=== PATIENT | female | born 1990 | race Caucasian/White ===

== ENCOUNTER → 2020-04-22 00:32 | Outpatient (CLI) | payer OTHER, SELFPAY ==
[2020-04-22 21:18] LABS: SARS-CoV-2 RNA PCR Negative
== END ==
PROVIDERS: Visit Provider Surgery Plastic and Reconstructive Surgery
DX: Z01.812 Encounter for preprocedural laboratory examination (principal); Z20.822 Contact with and (suspected) exposure to COVID-19
CPT/HCPCS: C9803; U0003; U0005

== ENCOUNTER 2020-04-22 10:31 | Outpatient (CLI) | payer OTHER, SELFPAY ==
[2020-04-22 11:18] LABS: Hematocrit 42.6 % (37.0-47.0); Hemoglobin 14.3 g/dL (12.0-15.0)
== END 2020-04-22 10:32 | disposition home or self-care (01) ==
LOC: ANHSURGERY 10:37
PROVIDERS: Anesthesiology; Visit Provider Surgery Plastic and Reconstructive Surgery
DX: Z01.812 Encounter for preprocedural laboratory examination (principal); L57.4 Cutis laxa senilis
CPT/HCPCS: 36415; 85014; 85018; 86850; 86900; 86901

== ENCOUNTER 2020-04-25 00:42 | Day surgery (SDC) | payer OTHER, SELFPAY ==
[2020-04-21 10:49] VITALS: BMI 28.3
[2020-04-25] VITALS (10 sets, daily range): BP systolic 106–116; BP diastolic 56–77; PULSE 68–96; RESP 13–18; TEMP 36.3–37.2; O2SAT 97–100
--- NOTE | 2020-04-25 06:10 | ECG_ITS ---
Measurements Intervals [place] Rate: 68 P: 30 [place]: 153 QRS: 86 QRSD: 93 T: 51 QT: 385 QTc: 412 Interpretive Statements SINUS RHYTHM NORMAL ECG Electronically Signed On 04-25-2020 11:57:48 IT SUPPORT TECHNICIAN by Mika Garcia D.O.
[2020-04-25] MEDS: LACTATED RINGERS 1,000 ML 30 ML IV CONT ×2 (06:30→13:52)
--- NOTE | 2020-04-25 06:46 | P.PNAN_ITS ---
Anes - Initial Pre Proc Eval Procedure: Operation Date: 04/25/20 07:30 Proposed Procedures p Bilateral Breast Augmentation - Anthony Nichols MD s Bilateral Breast MastopexyWith Gala Flex - Anthony Nichols MD s Abdominoplasty - Anthony Nichols MD s Labiaplasty - Anthony Nichols MD Date/Time: 04/25/20 06:46 Surgeon: Anthony Nichols MD Pre Op Diagnosis: Micromastia, Skin laxity Patient Data Age: 29 Gender: F Height: 1.63 m Weight: 75 kg Allergies Allergy/AdvReac Type Severity Reaction Status Date / Time Bleach (Sodium Hypochlorite) Allergy Severe Rash Verified 04/21/20 10:47 Home Medications Medication Instructions Recorded Confirmed Type brexpiprazole 1 mg tablet 1 mg PO DAILY 03/19/20 04/21/20 History buspirone 10 mg tablet 10 mg PO BID 03/19/20 04/21/20 History vortioxetine 10 mg tablet 10 mg PO DAILY 03/19/20 04/21/20 History docusate sodium 100 mg capsule 100 mg PO DAILY #14 cap 04/14/20 04/21/20 Rx ondansetron HCl 4 mg tablet 4 mg PO Q8H #24 tablet 04/14/20 04/21/20 Rx Laboratory Tests 04/25/20 06:24 Cotinine Pending Patient hx anesthesia problems: none Family hx anesthesia problems: none PMFSH Past Medical History Medical History (Updated 04/25/20 @ 06:46 by Alonzo Rivera DO) Anxiety Bipolar disorder Surgical History Surgical History [place] teeth removed Social History Social History Smoking packs per day: 0.2 Smoking cigarettes per day: 4.0 Years smoked: 1 Smoking pack-years: 0.20 Smoking status: Former smoker Tobacco type: cigarettes Alcohol intake: current Substance use: never Living arrangements: with family Gender identity (if verbalized by the patient): Female Spiritual care concerns: No Anes - Eval Final PreProcedure Day of Procedure 04/25/20 06:46 Patient weight: overweight Heart: regular rate and rhythm Lungs: clear to auscultation and normal air movement Airway: Mallampati scale class 1 Neurological: alert and oriented Last oral intake: >/= 8 hours ASA classification: II Emergent: no Anesthetic plan: proceed Anesthesia type and monitoring: general ETT and standard monitoring Informed Consent: The patient's anesthetic plan and its attendant risks and benefits were discussed with the patient/family/POA. Questions were solicited and answers provided to the satisfaction of the patient/family/POA.
--- NOTE | 2020-04-25 06:55 | WPDHPUPDATE1 ---
History and Physical Update Update Date/Time: 04/25/20 06:55 History and Physical has been reviewed, including an updated exam of the patient. There are NO changes in the patient's condition. Risks, benefits, and alternatives have been discussed and questions answered. Patient agrees to proceed with procedure.
[2020-04-25 06:56] LABS: Urine Cotinine NEGATIVE
[2020-04-25] MEDS: SCOPOLAMINE 1.5 MG PATCH TRANSDERM (06:57)
--- NOTE | 2020-04-25 07:22 | PM.PROC ---
Procedure Note - Detailed Date of procedure: 04/25/20 Pre-op diagnosis: Micromastia, Skin laxity Post-op diagnosis: same Procedure performed: 1. Bilateral augmentation mastopexy with gallaflex 2. Progressive tension abdominoplasty 3. Labiaplasty Description of procedure: She is here today for abdominoplasty. Previously and again today the risks, benefits, alternatives were discussed in extensive detail. I wanted her to be very realistic about the risks involved as well as expectations. We discussed aftercare and what to monitor for. I was very upfront about the risks of wound breakdown leading to loss of skin, open wounds, and need for additional procedures with permanent abdominal deformity. We discussed DVT/PE risks and management. Made sure answered all of her questions to her satisfaction today and consent was obtained. Marked in the preoperative holding area with their verification. The patient was taken to the operating room placed supine on the operating table. Anesthesia was provided by anesthesiology. A fernandez catheter was started. A surgical time-out was taken. First I proceeded with labiaplasty. Patient was prepped and draped in a standard sterile fashion. 1% lidocaine with epinephrine was used anesthetize locally. I sharply excised a wedge excision this was closed with 3-0 Monocryl followed by 4-0 chromic. I then re-prepped and draped the patient in a standard sterile fashion. 1% lidocaine and 0.25% Marcaine with epinephrine was used anesthetize as a field block for the breast. Tegaderm nipple Arcos were placed. A 15 blade used to make an incision just superior to the inframammary fold. Dissection was continued at 45 degree angle until the chest wall as identified. I incised the pectoralis major along its inferior border and completely released the inferior border leaving the medial border intact. I created a subpectoral pocket in the appropriate dimensions based on our preoperative planning for the implant. I then copiously irrigated with saline solution and verified a strict hemostasis. Next the use a triple antibiotic and Betadine containing solution to irrigate the pocket. I washed my gloves with the triple antibiotic and Betadine solution. We washed the implant immediately upon opening it with this solution and only opened it when we needed it. I used implant funnel and no-touch technique. The implant was introduced into the pocket using the funnel. Having verified positioning of the implant this was closed using 2-0 Vicryl. I tailor tacked the breast and to placed a verified my markings. Placed her in a sitting position and marked out the nipple-areolar complex at 38 mm. This was based on preoperative markings intraoperative measurements as well as observations which were in full agreement. I then replaced her supine. I de-epithelialized the superior medial pedicle. Resected the central tissue. She did have asymmetry which had been identified to her preoperatively. I did create a inferior de-epithelialized flap in order to provide coverage of the lower pole of the breast as well as the galaflex. Elevated medial and lateral flaps just superficial to the implant. I did provide a layer of tissue coverage of the implant. I had soaked to the galaflex in Betadine triple antibiotic solution. This was trimmed as necessary and sutured into place with 2-0 Vicryl. I then placed the lower de-epithelialized flap superficial this in order to cover this near the T junction which was tacked into place with 2-0 Vicryl. Final closure was 3-0 Monocryl (3-0 stratafix along the IMF) and a running subcuticular 4-0 Monocryl followed by tissue glue. I then proceeded to the abdominoplasty. I placed the patient in a flexed position to verify the upper and lower markings would reach. I then placed her supine. A thorough abdominal examination was completed. Stab incisions were made and used tumescent solution. A 10 blade was used to ma
[2020-04-25] MEDS: ceFAZolin 2 GM/D5W 50 ML 2 GM/50 ML BAG IVPB (07:37)
[2020-04-25] MEDS: BACITRACIN OINTMENT 15 GM TUBE 1 APPLIC TOPICAL (08:30)
[2020-04-25] MEDS: LIDO 1%/EPINEPHRINE 1:100,000 50 ML VIAL 35 ML INFILTRATE (09:55)
[2020-04-25] MEDS: ceFAZolin SODIUM 1 GM VIAL IV PUSH (11:35)
--- NOTE | 2020-04-25 13:31 | SUR.OPER ---
EBL:100cc
--- NOTE | 2020-04-25 13:42 | SUR.OPER ---
URINE COLLECTION:800cc
[2020-04-25] MEDS: fentaNYL CITRATE INJ (*CRX) 100 MCG/2 ML VIAL 25 MCG IV PUSH ×7 (14:14→14:50)
--- NOTE | 2020-04-25 14:35 | SUR.PHASEI ---
1352. PT IN BED IN FLEXED POSITION. HOB 30 DEGREES. KNEES IN FLEXED POSITION WITH PILLOW UNDERNEATH.
--- NOTE | 2020-04-25 14:35 | SUR.PHASEI ---
PT AWAKE AND ALERT. TALKATIVE.
--- NOTE | 2020-04-25 15:18 | OBPPTRN ---
Patient transferred to post room # 283 via bed. Oriented to unit, room, and information board. Patient verbalizes understanding.
[2020-04-25] MEDS: MORPHINE SULFATE (*CRX) 2 MG/ML INJ IV PUSH ×2 (16:01→22:47)
[2020-04-25] MEDS: LACTATED RINGERS 1,000 ML 125 ML IV CONT ×2 (16:01→23:12)
[2020-04-25] MEDS: oxyCODONE/ACETAMINOPHEN (*CRX) 5-325 MG TABLET PO ×3 (17:10→23:44)
[2020-04-25] MEDS: busPIRone HCL 10 MG TABLET PO (18:55)
[2020-04-25] MEDS: carisoprodoL (*CRX) 350 MG TABLET PO ×2 (18:55→23:44)
[2020-04-25] MEDS: DOCUSATE SODIUM 100 MG CAPSULE PO (18:56)
--- NOTE | 2020-04-25 19:10 | PC.NURSE ---
Home medication bottles sent to pharmacy to verify.
--- NOTE | 2020-04-25 19:51 | PHAR ---
HOME MEDICATIONS VERIFIED BY PHARMACY: BUSPIRONE 10MG TABLET 1 TAB PO TWICE A DAY RX #[id number] TRINTELLIX 10MG TABLET 1 TAB PO DAILY RX #[id number] REXULTI 1MG TABLET 1 TAB PO AT BEDTIME RX #[id number]
[2020-04-26] MEDS: MORPHINE SULFATE (*CRX) 2 MG/ML INJ IV PUSH ×3 (02:20→10:30)
[2020-04-26 04:20] VITALS: BP 108/75; PULSE 79; RESP 18; TEMP 36.9; O2SAT 98
[2020-04-26] MEDS: oxyCODONE/ACETAMINOPHEN (*CRX) 5-325 MG TABLET PO ×2 (05:41→11:34)
[2020-04-26] MEDS: carisoprodoL (*CRX) 350 MG TABLET PO ×2 (05:41→11:34)
[2020-04-26 07:30] VITALS: BP 96/62; PULSE 80; RESP 18; TEMP 36.7
--- NOTE | 2020-04-26 09:42 | WPDPN ---
Progress Note: A&P Assessment and Plan (1) Skin laxity: Code(s): L57.4 - Cutis laxa senilis Status: Acute Assessment and Plan: She is doing very well after augmentation mastopexy with galaflex, progressive tension abdominoplasty, and labia plasty. Will discharge home. Today's spent more than 25 minutes discussing the aftercare. Activity limitations. What to monitor for. Made sure answered all of her questions to her satisfaction. We will discharge home. She will call with any questions or concerns in the meantime. 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 No signs of infection. No hematoma. No seroma. Good color and capillary refill. Abdomen soft. No signs of infection. No hematoma. No seroma. Good color and capillary refill. No signs of edema from labia plasty. No signs of infection. She has had no bleeding. No calf tenderness. Negative Homans. Const: General: comfortable, no acute distress, alert and awake; No acute distress Orientation/consciousness: oriented to person HENMT: Head: normal to inspection Ears: external ears normal General nose exam: Normal external nose present Face and sinus: normal facial exam Eyes: General: appearance normal, both eyes and all related structures Periorbital: periorbital findings normal Eyelids: eyelids normal Conjunctivae: conjunctivae normal Neck: Neck: normal visual inspection Chest: Chest palpation & inspection: normal inspection of the chest Resp: Effort & Inspection: normal respiratory effort and able to speak in complete sentences GI: Inspection: normal to inspection Neuro: General: oriented to person Psych: Appearance: grossly normal Mental Status: mental status grossly normal Objective Data Vital Signs Vital Signs: Vital Signs - 24 hr 04/25/20 13:52 04/25/20 14:05 04/25/20 14:20 Temperature 36.8 C 36.7 C 36.8 C Pulse Rate 96 84 87 Respiratory Rate 13 14 14 Blood Pressure 113/74 116/73 107/73 Pulse Oximetry 100 100 97 04/25/20 14:35 04/25/20 14:50 04/25/20 15:25 Temperature 36.9 C 37.2 C Pulse Rate 82 78 90 Respiratory Rate 18 14 16 Blood Pressure 112/56 L 111/74 114/68 Pulse Oximetry 98 97 98 04/25/20 18:50 04/25/20 19:42 04/25/20 23:11 Temperature 37.2 C 37.0 C Pulse Rate 68 71 Respiratory Rate 18 18 18 Blood Pressure 115/74 113/77 Pulse Oximetry 98 98 04/26/20 04:20 04/26/20 07:30 Temperature 36.9 C 36.7 C Pulse Rate 79 80 Respiratory Rate 18 18 Blood Pressure 108/75 96/62 L Pulse Oximetry 98 Intake/Output Intake/Output: Intake & Output 04/23/20 04/24/20 04/25/20 04/26/20 23:59 23:59 23:59 23:59 Intake Total 3280 1900 Output Total 1960 1550 Balance 1320 350 Meds/Results Medications: Active Medications Generic Name Dose Route Start Last Admin Trade Name Freq PRN Reason Stop Dose Admin Buspirone HCl 10 mg 04/25/20 17:00 04/25/20 18:55 Buspirone Hcl 10 Mg Tablet PO 10 mg BID LUCIUS Administration Carisoprodol 350 mg 04/25/20 18:00 04/26/20 05:41 Carisoprodol (*Crx) 350 Mg Tablet PO 350 mg Q6HR LUCIUS Administration Docusate Sodium 100 mg 04/25/20 21:00 04/25/20 18:56 Docusate Sodium 100 Mg Capsule PO 100 mg Q12HR LUCIUS Administration Enoxaparin Sodium 40 mg 04/26/20 09:00 Enoxaparin 40 Mg/0.4 Ml Syringe SUB-Q DAILY [facility] Morphine Sulfate 2 mg 04/25/20 13:37 04/26/20 04:20 Morphine Sulfate (*Crx) 2 Mg/Ml Inj IV PUSH 2 mg Q2H PRN Administration Pain Ondansetron HCl 4 mg 04/25/20 13:37 Ondansetron Inj 4 M
--- NOTE | 2020-04-26 09:49 | PM.DS ---
DS: Admitting Diagnosis Admitting Diagnosis Admitting Diagnosis: Macromastia, breast ptosis, skin laxity, labia minora hypertrophy DS: Discharge Diagnosis Discharge Diagnosis (1) Micromastia: Code(s): N64.82 - Hypoplasia of breast Status: Acute Assessment and Plan: Will plan for discharge home. 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 Postoperatively has done very well. Ambulating. Pain controlled. Tolerating p.o.. Will discharge home. Time Spent with Patient Time attestation: Total time spent providing and/or coordinating discharge services:25 minutes Exam Narrative: Exam Narrative: Bilateral breasts are soft. No signs of infection. No hematoma. No seroma. Good color and capillary refill. Abdomen soft. No signs of infection. No hematoma. No seroma. Good color and capillary refill. No signs of edema from labia plasty. No signs of infection. She has had no bleeding. No calf tenderness. Negative Homans. Const: General: comfortable, no acute distress, alert and awake; No acute distress Orientation/consciousness: oriented to person HENMT: Head: normal to inspection Ears: external ears normal General nose exam: Normal external nose present Face and sinus: normal facial exam Eyes: General: appearance normal, both eyes and all related structures Periorbital: periorbital findings normal Eyelids: eyelids normal Conjunctivae: conjunctivae normal Neck: Neck: normal visual inspection Chest: Chest palpation & inspection: normal inspection of the chest Resp: Effort & Inspection: normal respiratory effort and able to speak in complete sentences GI: Inspection: normal to inspection Neuro: General: oriented to person Psych: Appearance: grossly normal Mental Status: mental status grossly normal Discharge Plan Discharge Patient Disposition: Home, Self-Care Discharge Instructions: POST OPERATIVE DISCHARGE INSTRUCTIONS ANTHONY NICHOLS M.D. [facility] [place] [address] [address] for 24 hours after anesthesia and while you are taking pain medication. Take all prescribed medication as directed Diet as tolerated. Begin gentle shoulder rolls and arm stretches 10 times per hour. No lifting or activity that raises blood pressure for 48 hours. Regular walking / ambulation. No pools or tubs for 2 weeks. Call with any questions or concerns. Slowly stand up straight over the week as tolerated. No straining. No lifting more than 20 lb. No tampons, sexual activity, or other activities that could injure labiaplasty. You may remove the dressings and bra. At this point my may shower. Do not take pain medication before showering as the combination of medication and heat may cause you to feel dizzy or pass out. Let soap and water run over your incisions. Do not scrub or directly wash your incision. Replace the surgical bra /abdominal binder/sanitary pad and wear it 23 hours per day. If you have any questions or concerns, please call the office . If it is after hours you will be directed to the counselor education professor exchange. Shortness of breath, chest pain, or other medical emergency dial 911 / proceed to the Emergency Room. Stand Alone Forms: General Discharge Instructions Follow-up/Referrals: Anthony Nichols MD [Physician] - 1 Week Discharge Medications: New carisoprodol 350 mg Tablet 350 mg PO Q6HR Qty: 30 RF: 0 oxycodone-acetaminophen 5-325 mg Tablet 1 - 2 tablet PO Q6H PRN (Reason: Pain) Qty: 15 RF: 0 Continued ondansetron HCl [Zofran] 4 mg tablet 4 mg PO
--- NOTE | 2020-04-26 10:18 | WPDANESPN ---
Anes - Prog Note Post-Op Date/Time: 04/26/20 10:18 Cardiovascular status: normal Respiratory status: normal Airway patency: baseline Mental status: baseline Post-Op hydration status: normal Vital Signs: Last Vital Signs Temp 36.7 C 04/26/20 07:30 Pulse 80 04/26/20 07:30 Resp 18 04/26/20 07:30 BP 96/62 L 04/26/20 07:30 Pulse Ox 98 04/26/20 04:20 Pain Score (VAS): 0 I/O: Intake & Output 04/25/20 04/26/20 04/26/20 23:59 07:59 15:59 Intake Total 2980 1900 Output Total 1750 1550 Balance 1230 350 Post-procedural complaints: none Patient Feedback: Patient satisfied with anesthetic care.
[2020-04-26] MEDS: ENOXAPARIN 40 MG/0.4 ML SYRINGE SUB-Q (10:23)
[2020-04-26] MEDS: DOCUSATE SODIUM 100 MG CAPSULE PO (10:23)
== END 2020-04-26 11:40 | disposition home or self-care (01) ==
LOC: ANHSURGERY 07:38 → ANHOB2 15:24
PROVIDERS: Visit Provider Surgery Plastic and Reconstructive Surgery
PROC: (CPT 19316; principal; 2020-04-25 07:30)
PROC: (CPT 19316; 2020-04-25 07:30)
PROC: (CPT 19316; 2020-04-25 07:30)
PROC: (CPT 19316; 2020-04-25 07:30)
DX: Z41.1 Encounter for cosmetic surgery (principal); N64.82 Hypoplasia of breast; L57.4 Cutis laxa senilis; F41.9 Anxiety disorder, unspecified; F31.9 Bipolar disorder, unspecified; Z87.891 Personal history of nicotine dependence
CPT/HCPCS: 19316; 56620; 15830; 15847; 19325; 15777 ×2; 80307; 93005; 99199; A9270; C9290; J0171; J0690; J1100; J1170; J1580; J1650; J2250; J2270; J2405; J2704; J3010; J7120